=== PATIENT | female | born 1955 | race African-American/Black ===

== ENCOUNTER 2017-01-19 10:53 | Emergency (ER) | payer OTHER ==
[~2017-01-19] VITALS: Ht 157.5 cm; Wt 95.8 kg
[2017-01-19 10:59] VITALS: Ht 157.5 cm; Wt 95.8 kg
--- NOTE | 2017-01-19 11:17 | ERA ---
ER Documentation Chief Complaint Date/Time DATE: 01/19/17 TIME: 11:16 Chief Complaint Fall HPI The patient is a 61-year-old female, presenting to the ER because she had a mechanical fall and hit her head on the file cabinet prior to arrival. She denies syncope, near syncope, seizure. She complains of left-sided head pain and left sided neck pain, denies chest pain, dyspnea, abdominal pain, vomiting, dysuria, diarrhea. She does not smoke or drink Past medical history: Sarcoidosis, chronic kidney disease, hypertension, diabetes mellitus, epilepsy Past surgical history: None ROS All systems reviewed and are negative except as per history of present illness. Medications Home Meds Reported Medications Folic Acid* (Folic Acid*) 1 Mg Tablet, 1 MG PO DAILY, TAB 01/19/17 Albuterol Sulfate* (Albuterol Sulfate* Neb) 0.083%-3 Ml Neb, 2.5 MG NEB Q4H, # 30 VIAL 01/19/17 Fluticasone Propionate* (Fluticasone Propionate* Nasal) 50 Mcg/[place] - 16 Gm [place].susp, 1 SPRAY NASAL DAILY, #1 BOTTLE TO EACH NOSTRIL 01/19/17 Cholecalciferol* (Vitamin D3*) 1,000 Unit Tablet, 1000 UNIT PO DAILY, TAB 01/19/17 Gabapentin* (Gabapentin*) 300 Mg Capsule, 300 MG PO TID, #90 CAP 01/19/17 Allergies Allergies: Coded Allergies: glipizide (Verified Allergy, Mild, 01/19/17) metformin (Verified Allergy, Mild, 01/19/17) pravastatin (Verified Allergy, Mild, 01/19/17) PMhx/Soc Hx Alcohol Use: No Hx Substance Use: No Hx Tobacco Use: No Smoking Status: Never smoker Physical Exam Vitals Vital Signs Date Time Temp Pulse Resp B/P Pulse Ox O2 Delivery O2 Flow Rate FiO2 01/19/17 13:32 79 18 168/73 100 Room Air 01/19/17 13:00 57 18 231/98 98 Room Air 01/19/17 10:59 98.3 70 18 241/108 98 Physical Exam Const: No acute distress. Head: Atraumatic. No hematoma, no laceration Eyes: Normal Conjunctiva. ENT: Normal External Ears, Nose and Mouth. Neck: Full range of motion. No meningismus. Resp: Clear to auscultation bilaterally. Cardio: Regular rate and rhythm, no murmurs. Abd: Soft, non distended, normal bowel sounds, non tender. Skin: No petechiae or rashes. Back: No midline or flank tenderness. Ext: No cyanosis, or edema. Neur: Awake and alert. No focal deficit Psych: Normal Mood and Affect. Result Diagram: 01/19/17 1145 01/19/17 1145 Results 24 hrs Laboratory Tests Test 01/19/17 11:45 White Blood Count 5.610^3/ul Red Blood Count 4.6210^6/ul Hemoglobin 12.7g/dl Hematocrit 40.7% Mean Corpuscular Volume 88.1fl Mean Corpuscular Hemoglobin 27.5pg Mean Corpuscular Hemoglobin Concent 31.2g/dl Red Cell Distribution Width 13.3% Platelet Count 48077^3/UL Mean Platelet Volume 9.6fl Neutrophils % 71.4% Lymphocytes % 17.7% Monocytes % 9.3% Eosinophils % 0.9% Basophils % 0.5% Nucleated Red Blood Cells % 0.0/100WBC Neutrophils # 4.010^3/ul Lymphocytes # 1.010^3/ul Monocytes # 0.510^3/ul Eosinophils # 0.110^3/ul Basophils # 0.010^3/ul Nucleated Red Blood Cells # 0.010^3/ul Prothrombin Time 24.6Sec Prothrombin Time Ratio 1.9 INR International Normalized Ratio 2.19 Activated Partial Thromboplast Time 33.7Sec Sodium Level 140mmol/L Potassium Level 4.0mmol/L Chloride Level 106mmol/L Carbon Dioxide Level 27mmol/L Anion Gap 11 Blood Urea Nitrogen 25mg/dl Creatinine 1.23mg/dl Glucose Level 183mg/dl Calcium Level 9.1mg/dl Current Medications Medications (Trade) Dose Ordered Sig/Enma Route PRN Reason Start Time Stop Time Status Last Admin Dose Admin Hydralazine HCl (Apresoline) 20 mg ONCE ONCE IV 01/19/17 13:00 01/19/17 13:01 DC 01/19/17 13:03 Hydralazine HCl (Apresoline) 10 mg ONCE ONCE IV 01/19/17 14:00 01/19/17 14:00 DC Procedures/[place] [address] Radiology Main Line: [phone] DIAGNOSTIC IMAGING REPORT Patient: ASHLEY MERA : 1955 Age: 61 Sex: F MR #: [id number] DOS: 01/19/17 1122 Ordering MD: MIRI ALTAMIRANO MD Location: E/R Room/Bed: PROCEDURE: CT Cervical Spine without contrast. CLINICAL INDICATION: Trauma, neck pain. TECHNIQUE: A CT of the cervical spine was performed on a multidetector CT scanner utilizing high-resolution axial imaging from the skull base through the cervical thoracic junction. Sagittal and coronal reconstructions were performed. CTDI: 22 mGy. DLP: 487 mGycm. One or more of the following dose reduction techniques were used: Automated exposure control, Adjustment of the mA and/or kV according to patient size, and/or use of iterative reconstruction technique. COMPARISON: None available. FINDINGS: [place] tonsiliths. There is straightening of the normal lordosis of the cervical spine. No acute cervical vertebral fracture or subluxation. The prevertebral soft tissues are unremarkable. The partially visualized lung apices are unremarkable. IMPRESSION: No acute cervical vertebral fracture or subluxation. RPTAT: AA .Jules Nazario MD, MD Date Time Electronically viewed and signed by .Jules Nazario MD, on 01/19/2017 12:52 .T/ CC: MIRI ALTAMIRANO MD EKG: Read by emergency physician Rate/Rhythm: Normal Sinus Rhythm 60 beats/min QRS, ST, T-waves: No ST elevation, no T inversion, LVH Impression: Abnormal EKG MEDICAL MAKING DECISION: The patient is a 61-year-old female, presenting with acute headache, acute neck pain, acute accelerated hypertension. She was treated with hydralazine 20 mg IV for acute excellent hypertension with good response The differential diagnoses considered include but are not limited to subarachnoid hemorrhage, occult trauma, CVA, meningitis, encephalitis, hypertension, tension, migraine, cluster, narcotic withdrawal, cervical spine disease. [facility] [address] [place] [address] Radiology Main Line: [phone] DIAGNOSTIC IMAGING REPORT Patient: ASHLEY MERA : 1955 Age: 61 Sex: F MR #: [id number] DOS: 01/19/17 1122 Ordering MD: MIRI ALTAMIRANO MD Location: E/R Room/Bed: PROCEDURE: CT Brain without contrast. CLINICAL INDICATION: Headaches. Neurologic deficit TECHNIQUE: A CT of the brain was performed on multidetector high-resolution CT scanner utilizing axial sections from the skull base through the vertex without contrast. One or more of the following dose reduction techniques were used: Automated exposure control, Adjustment of the mA and/or kV according to patient size, and/or use of iterative reconstruction technique. DOSE: CTDI = 44 mGy and the DLP = 630 mGy-cm. COMPARISON: None available FINDINGS: No acute intracranial hemorrhage, significant mass effect or midline shift. The chance-white differentiation is grossly preserved. The ventricles are normal in size for age. No significant opacification of the visualized paranasal sinuses or mastoids. IMPRESSION: No acute intracranial findings. RPTAT: AA .Jules Nazario MD, MD Date Time Electronically viewed and signed by .Jules Nazario MD, MD on 01/19/2017 12:50 .T/ CC: MIRI ALTAMIRANO MD Departure Diagnosis: Primary Impression: Accelerated hypertension Additional Impressions: Cephalgia Cervical strain Condition: Good Comments I discussed the person with the [facility] physician Dr Miranda at 1:25 pm who was made aware of the lab, the treatment, the patient condition. He agreed to discharge and would arrange for outpatient follow-up tomorrow I discussed the findings with the patient. I advised the patient to follow-up with the primary physician in about 1-2 days, sooner if needed and return if any concern. MIRI ALTAMIRANO MD January 19, 2017 11:17
[2017-01-19 11:52] LABS: ADD SCAN DIFF NO
[2017-01-19 11:54] LABS: BASOPHILS % 0.5 % (0.0-2.0); EOSINOPHILS # 0.1 10^3/ul (0.0-0.5); EOSINOPHILS % 0.9 % (0.0-7.0); HEMATOCRIT 40.7 % (37.0-47.0); HEMOGLOBIN 12.7 g/dl (12.0-16.0); LYMPHOCYTES % 17.7 % (15.0-51.0); MEAN CORPUSCULAR HEMOGLOBIN 27.5 pg (29.0-33.0); MEAN CORPUSCULAR HGB CONC 31.2 g/dl (32.0-37.0); MEAN CORPUSCULAR VOLUME 88.1 fl (82.0-101.0); MEAN PLATELET VOLUME 9.6 fl (7.4-10.4); MONOCYTE # 0.5 10^3/ul (0.3-0.9); MONOCYTES % 9.3 % (0.0-11.0); NEUTROPHILS % 71.4 % (39.0-77.0); PLATELET COUNT 212 10^3/UL (140-415); RED BLOOD COUNT 4.62 10^6/ul (4.20-5.40); RED CELL DISTRIBUTION WIDTH 13.3 % (11.5-14.5); WHITE BLOOD COUNT 5.6 10^3/ul (4.8-10.8)
[2017-01-19 12:12] LABS: PT RATIO 1.9
[2017-01-19 12:17] LABS: PARTIAL THROMBOPLASTIN TIME 33.7 Sec (25.0-35.0)
[2017-01-19 12:21] LABS: CALCIUM 9.1 mg/dl (8.4-10.2); CREATININE 1.23 mg/dl (0.44-1.00)
[2017-01-19 12:47] LABS: INR 2.19; PROTIME 24.6 Sec (12.2-14.2)
--- NOTE | 2017-01-19 12:50 | RADRPT ---
PROCEDURE: CT Brain without contrast. CLINICAL INDICATION: Headaches. Neurologic deficit TECHNIQUE: A CT of the brain was performed on multidetector high-resolution CT scanner utilizing a xial sections from the skull base through the vertex without contrast. One or more of the following dose reduction techniques were used: Automated exposure control, Adjustment of the mA and/or kV acc ording to patient size, and/or use of iterative reconstruction technique. DOSE: CTDI = 44 mGy and the DLP = 630 mGy-cm. COMPARISON: None available FINDINGS: No acute intracranial hemorrhage, significant mass effect or midline shift. The chance-white different iation is grossly preserved. The ventricles are normal in size for age. No significant opacification of the visualized paranasal sinuses or mastoids. IMPRESSION: No acute intracranial findings. RPTAT: AA .Jules Nazario MD, Date Time Electronically viewed and signed by .Jules Nazario MD, MD on 01/19/2017 12:50 .T/
--- NOTE | 2017-01-19 12:52 | RADRPT ---
PROCEDURE: CT Cervical Spine without contrast. CLINICAL INDICATION: Trauma, neck pain. TECHNIQUE: A CT of the cervical spine was performed on a multidetector CT scanner utilizing high-r esolution axial imaging from the skull base through the cervical thoracic junction. Sagittal and co sheldon reconstructions were performed. CTDI: 22 mGy. DLP: 487 mGycm. One or more of the following dose reduction techniques were used: Automated exposure control, Adjustment of the mA and/or kV acc ording to patient size, and/or use of iterative reconstruction technique. COMPARISON: None available. FINDINGS: [place] tonsiliths. There is straightening of the normal lordosis of the cervical spine. No acute cervical vertebral fracture or subluxation. The prevertebral soft tissues are unremarkable. The par tially visualized lung apices are unremarkable. IMPRESSION: No acute cervical vertebral fracture or subluxation. RPTAT: AA .Jules Nazario MD, MD Date Time Electronically viewed and signed by .Jules Nazario MD, on 01/19/2017 12:52 .T/
[2017-01-19] MEDS ORDERED: hydrALAzine 20 MG INJ IV ONE ×2 (13:00→14:00)
[2017-01-19] MEDS ORDERED: GABA300C16 PO (13:30)
[2017-01-19] MEDS ORDERED: CHOL100062 PO (13:31)
[2017-01-19 13:32] VITALS: BP 168/73; PULSE 79; RESP 18
[2017-01-19] MEDS ORDERED: FOLI-49 PO (13:32)
[2017-01-19] MEDS ORDERED: ALBU2.5V3 NEB (13:32)
[2017-01-19] MEDS ORDERED: FLUT16SP17 NASAL (13:32)
== END 2017-01-19 14:10 | disposition home or self-care (01) ==
LOC: E/R 10:53
DX: I12.9 Hypertensive chronic kidney disease with stage 1 through stage 4 chronic kidney disease, or unspecified chronic kidney disease (principal); S16.1XXA Strain of muscle, fascia and tendon at neck level, initial encounter; E11.9 Type 2 diabetes mellitus without complications; N18.9 Chronic kidney disease, unspecified; W18.09XA Striking against other object with subsequent fall, initial encounter; Y92.9 Unspecified place or not applicable
CPT/HCPCS: 36415; 70450; 72125; 80048; 85025; 85610; 85730; 93005; 96374; 99285; J0360